=== PATIENT | male | born 1965 | race Asian ===

== ENCOUNTER 2025-05-07 09:01 | Emergency (ER) | payer OTHER, BC | END 2025-05-07 12:16 | disposition home or self-care (01) | LOC: MW.ED 09:01 | DX: S43.401A Unspecified sprain of right shoulder joint, initial encounter (principal); I10 Essential (primary) hypertension; F17.200 Nicotine dependence, unspecified, uncomplicated; Z79.899 Other long term (current) drug therapy; W00.0XXA Fall on same level due to ice and snow, initial encounter | CPT/HCPCS: 71045; 71045-26; 73030-26-RT; 73030-RT; 73060-26-RT; 73060-RT; 99283 ==